=== PATIENT | male | born 1990 | race Caucasian/White ===

== ENCOUNTER 2024-02-22 04:40 | Emergency (ER) | payer BC ==
[2024-02-22] MEDS ORDERED: Sodium Chloride 0.9% 10 ML Syringe FLUSH PRN (05:09)
[2024-02-22] MEDS: Ondansetron 4 MG/2 ML SDV IVPUSH ONE ×2 (05:23→06:29)
[2024-02-22] MEDS: Sodium Chloride 0.9% 1,000 ML IV ONE (05:23)
[2024-02-22 05:27] LABS: HEMATOCRIT 46.8 % (38.3-50.1); HEMOGLOBIN 16.1 g/dL (12.9-17.7); MEAN CORPUSCULAR HEMOGLOBIN 31.6 pg (27.0-33.3); MEAN CORPUSCULAR HGB CONC 34.5 g/dL (28.7-35.3); MEAN CORPUSCULAR VOLUME 91.5 fL (80.8-98.7); PLATELET COUNT,PLT 264 x10(3)uL (117-477); RED BLOOD CELL COUNT 5.12 x10(6)uL (3.90-5.90); RED CELL DISTRIBUTION WIDTH 12.5 % (12.4-15.0); WHITE BLOOD CELL COUNT,WBC 13.4 x10-3/uL (3.2-10.1)
[2024-02-22 05:33] LABS: BLOOD UREA NITROGEN,BUN 21 mg/dL (7-18); BUN/CREATININE RATIO 17.5 (9-20); C-REACTIVE PROTEIN 1.62 mg/dL (<0.50); CALCIUM 9.4 mg/dL (8.6-10.2); CARBON DIOXIDE,CO2 21 mmol/L (21-32); CHLORIDE,CL 104 mmol/L (100-110); CREATININE 1.2 mg/dL (0.70-1.30); ESTIMATED GFR 83 mL/min (>60); GLUCOSE RANDOM 131 mg/dL (80-116); POTASSIUM,K 4.2 mmol/L (3.5-5.3); SODIUM,NA 142 mmol/L (135-145)
[2024-02-22 05:38] LABS: A/G RATIO 1.3; ALANINE AMINOTRANSFERASE,ALT 36 U/L (12-36); ALBUMIN 4.6 g/dL (3.5-5.2); ALKALINE PHOSPHATASE 123 IU/L (56-112); ASPARTATE AMNIOTRANSFERASE,AST 19 IU/L (5-25); BILIRUBIN TOTAL 0.9 mg/dL (0.1-1.3); MAGNESIUM 1.8 mg/dL (1.8-2.5); PROTEIN TOTAL,TP 8.1 g/dL (6.0-8.0)
[2024-02-22 05:41] LABS: LACTIC ACID 1.1 mmol/L (0.4-2.0)
[2024-02-22 05:47] LABS: BAND PERCENT MAN 4 % (0-6); EOSINOPHILS PERCENT MAN 3 % (0-5); LYMPHOCYTES PERCENT MAN 8 % (13-37); MONOCYTES PERCENT MAN 5 % (4-12); SEG NEUTROPHILS PERCENT MAN 80 % (46-82)
[2024-02-22] MEDS: Escitalopram 20 MG Tab PO ONE (06:17)
== END 2024-02-22 07:40 | disposition home or self-care (01) ==
LOC: FB.ED 04:40
DX: K52.9 Noninfective gastroenteritis and colitis, unspecified (principal); E86.0 Dehydration; F17.290 Nicotine dependence, other tobacco product, uncomplicated; Z79.899 Other long term (current) drug therapy
CPT/HCPCS: 80053; 83605; 83690; 83735; 85025; 86140; 96361; 96374; 96376; 99284; A9270; J2405; J7030